=== PATIENT | male | born 1970 | race Caucasian/White ===

== ENCOUNTER 2017-08-15 07:05 | Emergency (ER) | payer OTHER ==
[~2017-08-15] VITALS: Ht 190.5 cm; Wt 99.8 kg
[2017-08-15 07:20] VITALS: Ht 190.5 cm; Wt 99.8 kg
[2017-08-15 07:55] VITALS: BP 119/78
== END 2017-08-15 07:55 | disposition home or self-care (01) ==
LOC: ED 07:05
DX: L03.116 Cellulitis of left lower limb (principal); L03.115 Cellulitis of right lower limb; F17.210 Nicotine dependence, cigarettes, uncomplicated; Z71.6 Tobacco abuse counseling
CPT/HCPCS: 99406

== ENCOUNTER 2019-09-24 21:19 | Emergency (ER) | payer OTHER ==
[~2019-09-24] VITALS: Ht 190.5 cm; Wt 131.1 kg
[2019-09-24 22:04] VITALS: BP 163/78; Ht 190.5 cm; Wt 131.1 kg
== END 2019-09-24 23:04 | disposition home or self-care (01) ==
LOC: ED 21:19
DX: L03.116 Cellulitis of left lower limb (principal); L03.115 Cellulitis of right lower limb; R60.0 Localized edema; E03.9 Hypothyroidism, unspecified; Z76.0 Encounter for issue of repeat prescription
CPT/HCPCS: J3490

== ENCOUNTER 2020-05-22 00:19 | Emergency (ER) | payer OTHER ==
[~2020-05-22] VITALS: Ht 182.9 cm; Wt 136.1 kg
[2020-05-22 00:25] VITALS: Ht 182.9 cm; Wt 136.1 kg
[2020-05-22 07:42] LABS: CALCIUM 9.8 mg/dL (8.5-10.1); CHLORIDE SERUM 100 mmol/L (98-107); GFR1 38 mL/min; GLUCOSE SERUM 76 mg/dL (74-106); POTASSIUM SERUM 3.4 mmol/L (3.5-5.1); SODIUM SERUM 140 mmol/L (136-145)
[2020-05-22 07:46] LABS: ALKALINE PHOSPHATASE 76 U/L (46-116); ALT/SGPT 43 U/L (16-63); AST/SGOT 183 U/L (15-37); BILIRUBIN TOTAL 0.6 mg/dL (0.20-1.00)
[2020-05-22 07:56] LABS: TOTAL PROTEIN, SERUM 9.5 g/dL (6.4-8.2)
[2020-05-22 08:08] LABS: PLATELET COUNT 376 x10^3mcL (130-400)
[2020-05-22 09:03] LABS: RED CELL DISTRIBUTION WIDTH 20.3 % (11.5-14.5)
[2020-05-22 09:30] LABS: SEGMENTED NEUTROPHILS 77 % (37-75)
[2020-05-22 09:31] LABS: MONOCYTE 6 % (0-7); rbc morphology (normal/abnorm) NORMAL (NORMAL)
[2020-05-22 14:52] LABS: AMPHETAMINE QUAL UR POSITIVE (See below)
[2020-05-24 20:34] VITALS: BP 148/78
== END 2020-05-24 20:34 | disposition home or self-care (01) ==
LOC: ED 00:19
PROVIDERS: Emergency Medicine
DX: R41.82 Altered mental status, unspecified (principal); F15.10 Other stimulant abuse, uncomplicated
CPT/HCPCS: G0480; J1630; J2060; Q0092; U0003-CS

== ENCOUNTER 2020-06-10 23:39 | Emergency (ER) | payer OTHER ==
[~2020-06-10] VITALS: Ht 190.5 cm; Wt 129.3 kg
[2020-06-10 23:57] VITALS: Ht 190.5 cm; Wt 129.3 kg
[2020-06-11 00:17] VITALS: BP 122/70
== END 2020-06-11 00:17 | disposition home or self-care (01) ==
LOC: ED 23:39
DX: S80.862A Insect bite (nonvenomous), left lower leg, initial encounter (principal); L08.9 Local infection of the skin and subcutaneous tissue, unspecified; W57.XXXA Bitten or stung by nonvenomous insect and other nonvenomous arthropods, initial encounter; Y93.89 Activity, other specified; Y92.89 Other specified places as the place of occurrence of the external cause; Y99.8 Other external cause status

== ENCOUNTER 2020-10-26 07:41 | Emergency (ER) | payer OTHER ==
[~2020-10-26] VITALS: Ht 193 cm; Wt 122.9 kg
[2020-10-26 07:52] VITALS: Ht 193 cm; Wt 122.9 kg
[2020-10-26] MEDS ORDERED: LEVO-T150 MCG PO (08:58)
[2020-10-26] MEDS ORDERED: BACTRIM DS1 TAB PO (08:58)
[2020-10-26] MEDS ORDERED: HIB480 TD (09:09)
[2020-10-26 09:14] VITALS: BP 143/89
== END 2020-10-26 09:14 | disposition home or self-care (01) ==
LOC: ED 07:41
DX: L02.211 Cutaneous abscess of abdominal wall (principal); Z76.0 Encounter for issue of repeat prescription
CPT/HCPCS: J2001

== ENCOUNTER 2020-10-26 12:29 | Emergency (ER) | payer OTHER ==
[~2020-10-26] VITALS: Ht 185.4 cm; Wt 104.3 kg
[~2020-10-26 12:29] MED LIST: BACTRIM DS1 TAB PO; HIB480 TD; LEVO-T150 MCG PO
[2020-10-26 12:42] VITALS: BP 120/69; Ht 185.4 cm; Wt 104.3 kg
== END 2020-10-26 13:51 | disposition left against medical advice (07) ==
LOC: ED 12:29
DX: R55 Syncope and collapse (principal); R10.11 Right upper quadrant pain; I10 Essential (primary) hypertension